=== PATIENT | male | born 1975 | race Caucasian/White ===

== ENCOUNTER 2017-07-19 20:47 | Emergency (ER) | payer SELFPAY ==
--- NOTE | 2017-07-19 21:26 | ED Physician Documentation ---
PD HPI OPHTHO - Stated complaint Stated Complaint: RT EYE REDNESS/PX - Chief complaint Chief Complaint: Heent - History obtained from History obtained from: Patient - History of Present Illness Timing - onset: Today Timing - details: Gradual onset (awoke with FB feeling in right eye. Was doing wood work yesterday but did not feel like FB last night. Redness of eye through day today, but no draiange.), Still present Location: Right Quality / character: Aching Associated symptoms: Redness, FB sensation. No: Discharge, Matting Contributing factors: FB Similar symptoms before: Has not had sx before Recently seen: Not recently seen Review of Systems Eyes: reports: Decreased vision. denies: Loss of vision, Photophobia Nose: denies: Rhinorrhea / runny nose, Congestion Throat: denies: Sore throat Respiratory: denies: Cough PD PAST MEDICAL HISTORY - Past Medical History Past Medical History: Yes Cardiovascular: Atrial fibrillation, Other Musculoskeletal: Osteoarthritis - Past Surgical History Past Surgical History: Yes - Present Medications Home Medications: Ambulatory Orders Medication Instructions Recorded Confirmed Tramadol HCl 25 mg PO Q6HR PRN 07/19/17 07/19/17 - Allergies Allergies/Adverse Reactions: Allergies Allergy/AdvReac Type Severity Reaction Status Date / Time Penicillins Allergy Unknown Verified 07/19/17 20:55 - Social History Does the pt smoke?: Yes Smoking Status: Current every day smoker Does the pt drink ETOH?: Yes Does the pt have substance abuse?: No - Immunizations Immunizations are current?: Yes PD ED PE NORMAL - Vitals Vital signs reviewed: Yes - General General: Alert and oriented X 3, Well developed/nourished - Neck Neck: Supple, no meningeal sign, No adenopathy PD ED PE EXPANDED - Eyes Eyes: EOMI, Right eye, Injected conj/sclera, Corneal FB (2 0'clock position with local inflammation around it. No rust ring. The FB appears likely wood/ sawdust. ), Anterior chambers clear. No: Exudate Results - Vitals Vitals: Vital Signs - 24 hr 07/19/17 07/19/17 07/19/17 20:53 22:12 22:29 Temperature 37.0 C Heart Rate 75 88 87 Respiratory 16 16 Rate Blood Pressure 125/71 90/43 L 100/62 O2 Saturation 99 99 Oxygen O2 Source Room air PD MEDICAL DECISION MAKING - ED course Complexity details: considered differential (corneal FB removed with edge of blunt fill needle, and appears gone, with just focal inflammation seen. ), d/w patient Departure - Departure Disposition: 01 Home, Self Care Clinical Impression: Corneal foreign body Qualifiers: Encounter type: initial encounter Laterality: right Qualified Code(s): T15.01XA - Foreign body in cornea, right eye, initial encounter Condition: Stable Record reviewed to determine appropriate education?: Yes Instructions: ED Foreign Body Cornea Comments: Use the Erythromycin antibiotic ointment 4 times daily for the next 2-3 days to coat the eye surface for comfort and in case of early infection. Tylenol or Ibuprofen as needed for pains. Recheck if not seeming fully better over the next couple of days. Discharge Date/Time: 07/19/17 22:38
[2017-07-19] MEDS ORDERED: PROPARACAINE 0.5% OPHTH DROPS 15 ML RIGHTEYE STA (21:35)
[2017-07-19] MEDS ORDERED: ERYTHROMYCIN OPHTH OINT 1 GM TUBE RIGHTEYE STA (21:59)
[2017-07-19 22:30] VITALS: BP 100/62
== END 2017-07-19 22:38 | disposition home or self-care (01) ==
LOC: ED 20:47
DX: T15.01XA Foreign body in cornea, right eye, initial encounter (principal); W22.8XXA Striking against or struck by other objects, initial encounter
CPT/HCPCS: 65220; 99283; J3490

== ENCOUNTER 2023-05-17 15:03 | Outpatient (CLI) | payer SELFPAY ==
--- NOTE | 2023-05-17 16:02 | Sleep Patient Instructions ---
Sleep Center Visit Summary - Patient Visit Information Reason for Visit: Initial consult for evaluation of sleep disordered breathing and other sleep issues. - Patient Instructions Instructions Attached: Sleep Study Home Monitor Additional Instructions: You will be completing a sleep study, either an in-lab polysomnography (PSG) or home sleep study (HST). You will follow-up in the sleep care office after the sleep study is completed to hear the results and talk about therapy, if needed. You will be called by our office staff to schedule this appointment, but you may contact us with any questions. - Clinic Information Contact: [facility] [address] [place] [address] [email or web address] T: [phone]
--- NOTE | 2023-05-17 16:11 | SLEEP CARE CONSULTATION ---
Information from patient questionnaire entered by Shilpa Nur. I have reviewed and concur with the information entered by Shilpa Nur. This document represents the service I personally performed and the decisions made by me, Hiral Lobo ARNP. History of Present Illness Service Date and Time: 05/17/2023 1503 Reason for Visit: New patient Accompanied by: Spouse Chief Complaint: reports: Unrefreshed sleep, Excessive daytime sleepiness, Fatigue, Frequent awakenings at night Date of Onset: 1YR Usual bedtime: 9-930AM Time it takes to fall asleep: LESS THAN 5MIN Snores at night: Yes Observed to quit breathing while asleep: No Sleeps alone due to snoring: No Number of times waking at night: 2-3 Reasons for waking at night: reports: Bathroom, Other (UNKNOWN). denies: Choking, Snoring, Gasping for air Toss, Turn, or Twitch while sleeping: Yes Recalls having dreams: No Usually gets out of bed at: 2-3AM Feels refreshed in the morning: No Morning headache: No Sleepy or fatigued during the day: Yes Ever fallen asleep while driving: Yes (he is having drowsy driving in last year, [place] long drives) Takes day naps: No Dreams during day naps: No Prior sleep studies: No Additional HPI information: I had the pleasure of seeing MATIAS JAMES today regarding the possibility of him having a sleep disorder. His current complaints are excessive daytime sleepiness, fatigue, frequent night awakenings and unrefreshed sleep. He states over a year ago he started falling asleep quickly after laying down. He will fall asleep progressively sooner at night. He states if he is not being active he is falling asleep. He is waking up 2-3 times a night. He is usually a morning person and once he wakes up about 2 AM he is unable to fall back to sleep. He is having some lack of focus that makes it hard to concentrate. He does snore sometimes but is not every night or very loud. His says he does not stop breathing at night or make any gasping sounds in his sleep. He has recently started sleep walking and does occasionally talk in his sleep. - Parasomnia Symptoms Ever been unable to move upon waking from sleep: Yes (has only happened one time) Walks in sleep: Yes (just started in last couple weeks, this is new) Talks in sleep: Yes (not often) Ever acted out dreams in sleep: No Ever felt weak in the knees when startled or emotional: No Bothered by creepy, crawly, restless sensations in legs: No Problems with memory or concentration: Yes (concentration and hard time remembering) Subjective Initial [place] Sleepiness Scale score: 21 (05/17/23) Past Medical History Past Medical History: reports: Other (Blanchard Parkinson's White syndrome, possible, 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 Patient is and lives in [place]. Have you smoked in the past 12 months: Yes Cigarettes per day (20/pack): 20 Years of smokin Smoking Pack Years: 25.0 Alcohol use: No Caffeine use: Yes Caffeine amount and frequency: 4 CUPS EVERY MORNING Family History Family history of sleep disordered breathing: Yes Family Hx Sleep Apnea: Father: Snoring Allergies and Home Medications Known drug allergies: Yes (as listed) Drug allergies reviewed: Yes Home medication list reviewed: Yes (as listed) Allergy and home medication list: Allergies Penicillins Allergy (Verified 05/16/23 09:54) Unknown Home Medications Medication Instructions Recorded Confirmed Last Taken Type Musinex See Rx Instructions .ROUTE .COMPLEX 05/17/23 05/17/23 Unknown History Naproxen Sodium [Aleve] See Rx Instructions .ROUTE .COMPLEX 05/17/23 05/17/23 Unknown History Oxymetazoline HCl [Afrin] See Rx Instructions .ROUTE .COMPLEX 05/17/23 05/17/23 Unknown History Review of Systems Weight loss over past 5 years: 10 Cardiovascular: denies: high blood pressure Gastrointestinal: denies: heartburn Neurological: denies: headaches Psychiatric: denies: anxiety, depression Ear/Nose/Throat: reports: nasal congestion, sinus problems. denies: tonsillectomy Endocrine: reports: sluggishness Physical Exam Vital signs obtained and entered by: SHILPA Gonzales MA Blood Pressure: 136/82 (LEFT ARM) Cuff size: regular Heart Rate: 82 O2 Saturation: 98 Height: 5 ft 6 in Weight: 138 lb 9.6 oz Body Mass Index: 22.4 BMI Classification: Normal Neck circumference: 14 Mouth and throat: narrow oropharynx Soft palate: long Hard palate: normal Uvula: normal Uvula visualization: 25% Mallampati Class III Tongue: enlarged in size with teeth cosby on lateral edges Tonsils: small Neck: normal w/o lymphadenopathy or thyromegaly Heart: regular rate and rhythm Lungs: clear bilaterally Impression and Plan 1. Suspected Obstructive Sleep Apnea-Hypopnea Syndrome, as suggested by a history of loud and irregular snoring, frequent awakening during the night, unrefreshed sleep, cognitive impairment, and excessive daytime sleepiness. Narrow oropharynx and obesity are common predisposing factors for obstructive sleep apnea-hypopnea syndrome. I recommend proceeding to polysomnography to confirm the diagnosis and to assess severity. If the patient has significant sleep disordered breathing, a manual CPAP titration study will also be performed to find the optimal treatment pressure. I informed the patient of what the sleep studies involve and after some discussion, obtained agreement to proceed. The pathophysiology of obstructive sleep apnea-hypopnea syndrome was discussed with the patient and health risks of cardiovascular and cerebrovascular disease if not treated. Risks of drowsy driving discussed in detail and patient advised to avoid long distance driving and to mandrel puller at the first sign of drowsiness. Patient agreed to plan. * Schedule polysomnography. * Avoid long distance driving or driving when feeling sleepy. * Avoid alcohol, sedative and muscle relaxant around bedtime. * Attempt to lose weight. * Review instructions provided by trained office staff on how to prepare for the sleep study. * Return for follow-up after sleep study completed. Visit Type: In Office Time Spent with Patient (minutes): 40 Provider Statement: I spent 100% of the Face to Face Visit with the patient with greater than 50% spent counseling the patient and coordination of care.
[2023-05-17 16:33] VITALS: BP 136/82; O2SAT 98
== END 2023-05-17 15:04 | disposition home or self-care (01) ==
LOC: SC 15:03
PROVIDERS: ATTEND Nurse Practitioner Family
DX: G47.10 Hypersomnia, unspecified (principal); R53.83 Other fatigue; G47.8 Other sleep disorders; R06.83 Snoring; F51.3 Sleepwalking [somnambulism]; F17.210 Nicotine dependence, cigarettes, uncomplicated
CPT/HCPCS: 99203; 99212

== ENCOUNTER 2023-11-16 09:08 | Emergency (ER) | payer OTHER ==
--- NOTE | 2023-11-16 09:22 | ED Physician Documentation ---
PD HPI BACK PAIN - Stated complaint Stated Complaint: BACK INJ - Chief complaint Chief Complaint: Back Pain - History obtained from History obtained from: Patient - History of Present Illness Timing - onset: How many weeks ago (1) Timing - duration: Weeks (1) Timing - details: Abrupt onset (was at work a week ago and lifted/pulled material and felt "hot" pain in right lumbar area. This has perssited with sme radiation down back thigh. WOrse with moving back. lifting and bending.), Still present, Waxing and waning Location: Lower, Right Quality: Pain, Spasm, Aching Associated symptoms: No: Fever, Weakness, Numbness, Incontinent of urine Worsened by: Movement, Lifting, Twisting Contributing factors: Lifting, Twisting. No: Trauma Review of Systems Constitutional: denies: Fever, Chills, Myalgias : denies: Incontinent Skin: denies: Rash, Lesions Neurologic: denies: Focal weakness, Numbness PD PAST MEDICAL HISTORY - Past Medical History Cardiovascular: Atrial fibrillation, Other Musculoskeletal: Osteoarthritis - Past Surgical History Past Surgical History: Yes - Present Medications Home Medications: Ambulatory Orders Medication Instructions Recorded Confirmed HYDROcod/ACETAM 5/325 [Paterson 5/325] 1 ea PO Q6H PRN #18 tablet 11/16/23 Lidocaine Patch 5% [Lidoderm Patch] 1 patch TOP DAILY PRN #10 patch 11/16/23 Meloxicam [Mobic] 7.5 mg PO BID 10 Days #20 tablet 11/16/23 methocarbamoL [Robaxin] 500 mg PO Q6H PRN #30 tablet 11/16/23 - Allergies Allergies/Adverse Reactions: Allergies Allergy/AdvReac Type Severity Reaction Status Date / Time Penicillins Allergy Unknown Verified 11/16/23 09:19 - Social History Does the pt smoke?: Yes Smoking Status: Current every day smoker Does the pt drink ETOH?: Yes Does the pt have substance abuse?: No - Immunizations Immunizations are current?: Yes PD ED PE NORMAL - Vitals Vital signs reviewed: Yes - General General: Alert and oriented X 3, No acute distress, Well developed/nourished Results - Vitals Vitals: Oxygen O2 Source Room air PD Medical Decision Making - ED course Complexity details: considered differential (low back pain onset with twist/pull and has had varying degrees of pain the past week. No red flags. Guideline suggest no testing/imaging. m) Departure - Departure Disposition: 01 Home, Self Care Clinical Impression: Acute lumbar myofascial strain Condition: Stable Record reviewed to determine appropriate education?: Yes Instructions: ED Sprain Strain Lumbar Follow-Up: Orthopedic Care [Provider Group] Prescriptions: Lidocaine Patch 5% [Lidoderm Patch] 1 patch TOP DAILY PRN #10 patch PRN Reason: pain Meloxicam [Mobic] 7.5 mg PO BID 10 Days #20 tablet HYDROcod/ACETAM 5/325 [Paterson 5/325] 1 ea PO Q6H PRN #18 tablet PRN Reason: Pain methocarbamoL [Robaxin] 500 mg PO Q6H PRN #30 tablet PRN Reason: Spasms Comments: This sounds like a muscle strain with spasm and pressure on the nerve root. Typical guidelines for back pain and injury like this suggest not doing any imag ing or such since the majority will get better with medications and physical treatments such as stretching and decreased strain of the muscles and potentially even physical therapy if not improving readily. Otherwise gentle range of motion and some activity are good to reduce spasms and stiffness. No heavy lifting, rotational movement with weight, bending repetitively etc. Off work today and likely the next couple of days initially and then progress activity lightly as able. Light duty for likely a week. Follow-up with your primary care or the clinic or Ortho clinic if not improving readily over the next week or so and resolved by 2 or 3 weeks. He is in stretching for the back to reduce spasms. I wrote for a different anti-inflammatory to see if it lasts longer than the ibuprofen he took. Meloxicam twice daily for the next 10 days. To that add acetaminophen/Tylenol 500 to 650 mg 4 times daily regularly. Also combine that with methocarbamol muscle relaxant and topical lidocaine patches. Massage and chiropractic are also okay. Add hydrocodone/acetaminophen if needed for worse pain. This may be necessary initially for the pain control but would anticipate not needing to continue more than a few days or so once things are starting to ease up. I sent your prescriptions to the [facility] pharmacy. I am prescribing a short course of narcotic pain medication for you. These are potentially dangerous and addictive medications that should be used carefully. These medications may constipate you. Take an [id number] stool softener such as docusate twice daily with plenty of water while taking these medications. If you go 24 hours without a bowel movement, take [id number] MiraLAX, per package instructions. Do not drink or drive while taking these medications. If you received narcotic or sedating medications while in the emergency department do not drive for 24 hours. Store this medication in a safe, secure place and out of reach of children. It is a violation of federal law to give or sell this medication to another person or to use in a manner other than prescribed. The ED will not refill narcotic prescriptions, including prescriptions lost or stolen. You can dispose of unwanted medications at the [facility]'s office or at several pharmacies such as [facility]. Forms: Activity restrictions Discharge Date/Time: 11/16/23 10:11
[2023-11-16 09:27] VITALS: O2SAT 100
[2023-11-16] MEDS: oxyCODONE 5 MG TABLET PO STA (09:59)
[2023-11-16] MEDS: ACETAMINOPHEN 500 MG TABLET PO STA (09:59)
[2023-11-16] MEDS: methocarbamoL 500 MG TABLET PO STA (09:59)
[2023-11-16 10:18] VITALS: BP 125/84
== END 2023-11-16 10:11 | disposition home or self-care (01) ==
LOC: ED 09:08
DX: S39.012A Strain of muscle, fascia and tendon of lower back, initial encounter (principal); X50.9XXA Other and unspecified overexertion or strenuous movements or postures, initial encounter; Y99.0 Civilian activity done for income or pay; I48.91 Unspecified atrial fibrillation; F17.200 Nicotine dependence, unspecified, uncomplicated
CPT/HCPCS: 99283; A9270